=== PATIENT | female | born 1945 | race Caucasian/White ===

== ENCOUNTER 2019-05-15 00:45 | Inpatient (IN) | payer MEDICARE, OTHER ==
[2019-05-14 14:40] LABS: INR 0.95
--- NOTE | 2019-05-14 15:23 | RADIOLOGY IMAGING REPORT ---
[place] [facility] [place] NAME: Genesis Carranza : 1945 MR: [id number] V: [id number] EXAM DATE: ORDERING PHYSICIAN: ZACH LINCOLN TECHNOLOGIST: [place] [facility] [place] Genesis Carranza : 1945 Visit/Account:[id number] Date of Sevice: 05/13/2019 Study: Lower extremity length Indication: Planning for left total knee arthroplasty. Comparison study: None available Findings: AP images of the lower extremities with the patient in standing position were obtained. As measured from the top of the right femoral head to the right tibial plafond, the right lower extre mity measures 87.8 cm. The left lower extremity measures 86.6 cm as measured from the same landmarks. There is no evidence of lytic or blastic bony lesions. There is no evidence of acute abnormality. The patient is status post right total knee replacement. IMPRESSION: No acute bony abnormality identified. The patient is status post right total knee arthro plasty. Report Dictated By: Sandip Carver at 05/14/2019 3:04 PM Report E-Signed By: Sandip Carver at 05/14/2019 3:16 PM WSN:[id number]
[~2019-05-15] VITALS: Ht 172.7 cm; Wt 122.0 kg
[2019-05-15] VITALS (15 sets, daily range): BP systolic 128–157; BP diastolic 50–76
[~2019-05-15 00:45] MED LIST: ALLO100T70 PO; ALPR-448 PO; AMLO-127 PO; CETI-176 PO; CHOL10005 PO; DUL100/5PT INH; DULERAPT INH; FLUT9.9S; HYDR-385 PO; IRBE300T6 PO; LEVO200T44 PO; LOSA100T75 PO; MONT10TA4 PO; OXYC-823 PO; OXYC-865 PO; OXYGENHOME INH; PENT100C10 PO; TIO18R INH; VALS160T22 PO
[2019-05-15] MEDS ORDERED: MIDAZOLAM 2 MG/2 ML VIAL IVP PRN (06:15)
[2019-05-15] MEDS ORDERED: ACETAMINOPHEN 500 MG TAB PO ONE (06:15)
[2019-05-15] MEDS ORDERED: VANCOMYCIN(*) 1 GM VIAL 1.75 GM in NS(*) 0.9% 250 ML BAG 250 ML IVPB ONE (06:15)
[2019-05-15] MEDS ORDERED: FAMOTIDINE 20 MG TAB PO ONE (06:15)
[2019-05-15] MEDS ORDERED: LIDOCAINE/SOD BICARB 8.4% SYR ID ONE (06:15)
[2019-05-15] MEDS ORDERED: ROPIVACAINE/EPI/CLONIDINE/KET 50 ML SYRINGE INJ ONE (06:15)
[2019-05-15] MEDS ORDERED: NORMOSOL R SOLN(*) 1000 ML BAG 1,000 ML IV PRN (06:15)
[2019-05-15] MEDS ORDERED: TRANEXAMIC AC 1000 MG/10ML SDV 1,000 MG in DEXTROSE 5% 50 ML BAG 50 ML IV ONE (06:15)
[2019-05-15] MEDS ORDERED: PREGABALIN 75 MG CAPSULE PO ONE (06:15)
[2019-05-15] MEDS ORDERED: fentaNYL CITR 100 MCG/2 ML AMP ONE ×2 (09:40→09:53)
[2019-05-15] MEDS ORDERED: KCL/D5LR 20 MEQ/1000 ML PREMIX 1,000 ML IV PRN (10:15)
[2019-05-15] MEDS ORDERED: MAGNESIUM CITRATE 300 ML BTL PO PRN (10:15)
[2019-05-15] MEDS ORDERED: diphenhydrAMINE 25 MG CAP PO PRN (10:15)
[2019-05-15] MEDS ORDERED: ACETAMINOPHEN 500 MG TAB PO PRN (10:15)
[2019-05-15] MEDS ORDERED: NALOXONE HCL 0.4 MG/ML VIAL IVP PRN (10:15)
[2019-05-15] MEDS ORDERED: ONDANSETRON 4 MG/2 ML VIAL IVP PRN ×2 (10:15→15:05)
[2019-05-15] MEDS ORDERED: PROMETHAZINE 25 MG/ML 1 ML AMP IVP PRN (10:15)
[2019-05-15] MEDS ORDERED: FLUSH 10 ML SYR IVP PRN (10:15)
[2019-05-15] MEDS ORDERED: HYDROMORPHON PCA10MG/50ML(CII) 10 MG/50 ML PLAST..BAG IV PRN (10:15)
--- NOTE | 2019-05-15 13:21 | NUR ---
Physical Therapy Impression PT eval completed. Pt able to ambulate safely with good quad control to/from BR and was SBA/CGA for transfers and bed mobility. Pt encouraged to amb with nursing through the evening for short distances at tolerated. CPM trng completed with pt/CG and encouraged to advance flexion as tolerated as well. Currently at 0-40 degrees without difficulty. Pt anticipates possible d/c tomorrow and is already set up with out pt rehab next Saturday. PT did call this agency to request an earlier visit in the week, however, clinic closes early on Fridays, thus a voicemail was left, requesting that they contact the pt if an earlier visit is available. Physical Therapy Goals 1. Pt to be SBA/CGA for bed mobility and supine to/from sit transfers 2. Pt to be SBA/CGA for sit to/from stand transfers 3. Pt to be Mod indep/SBA for ambulation with least restrictive device x 150' 4. Pt to kurtis up/down platform step with rail and SBA/CGA Patient's Goals
--- NOTE | 2019-05-15 13:39 | RADIOLOGY IMAGING REPORT ---
FACILITY: [facility] PATIENT NAME: Genesis Carranza : 1945 MR: [id number] V: [id number] EXAM DATE: ORDERING PHYSICIAN: ZACH LINCOLN TECHNOLOGIST: Location: [facility] [place] Patient: Genesis Carranza : 1945 Visit/Account:[id number] Date of Sevice: 05/15/2019 Exam type: KNEE LIMITED LEFT History: Post op placement Comparison: May 14, 2019. Findings: Two views of the left knee demonstrate a left knee arthroplasty in good anatomic alignment. Soft tis chet gas projecting over the anterior aspect this postoperative knee IMPRESSION: 1. As above Report Dictated By: Ying Guevara MD at 05/15/2019 1:31 PM Report E-Signed By: Ying Guevara MD at 05/15/2019 1:32 PM WSN:[id number]
[2019-05-15] MEDS ORDERED: LEVOFLOXACIN 500 MG TAB PO SCH (14:00)
--- NOTE | 2019-05-15 14:28 | Hospitalist Consultation ---
History of Present Illness Requesting Physician Dr. Slaughter Reason for Consult Management of Hypertension, COPD. Chief Complaint Total knee replacement by Kasandra Smith on 05/15/19. History of Present Illness Total knee replacement with Dr. Slaughter on 05/15/19. No surgical complications reported. She is alert and oriented at this time. She will be on Aspirin for anticoagulation postoperatively. History Problems: (1) HTN (hypertension) Status: Chronic Home Meds Reported Medications Pentosan Polysulfate Sodium (ELMIRON) 100 Mg Capsule, 100 MG PO TID, CAPSULE 05/14/19 Losartan Potassium (LOSARTAN POTASSIUM) 100 Mg Tablet, 100 MG PO QDAY 05/07/19 Cholecalciferol (Vitamin D3) (VITAMIN D3) 1,000 Unit Tablet, 2000 UNIT PO QDAY, TAB 12/03/15 Mometasone/Formoterol (DULERA 200 MCG/5 MCG INHALER) 13 Gm Inh, 2 PUFF INH BID, INH 06/10/15 Oxygen (OXYGEN) Inha, 3 L INH DAILY, L 06/10/15 Tiotropium [place] (SPIRIVA) 18 Mcg/Cap Inh, 1 CAP INH DAILY, INH 06/10/15 Fluticasone Propionate (Flonase Allergy Relief) 9.9 Ml [place].susp, 2 SPRAY NA BID 06/10/15 Cetirizine Hcl (ZYRTEC) 10 Mg Tablet, 10 MG PO QDAY, TAB 06/10/15 Alprazolam 0.5 Mg Tab (ALPRAZOLAM 0.5 MG TAB) 0.5 Mg Tablet, 0.5 MG PO BID PRN for ANXIETY, TAB 06/10/15 Levothyroxine Sodium (SYNTHROID) 200 Mcg Tablet, 150 MCG PO QDAY 06/10/15 Allopurinol (ALLOPURINOL) 100 Mg Tablet, 100 MG PO QDAY, #10 TAB 06/10/15 Montelukast Sodium (MONTELUKAST SODIUM) 10 Mg Tablet, 1 TAB PO QDAY, TAB 06/10/15 Amlodipine Besylate (AMLODIPINE BESYLATE) 10 Mg Tablet, 1 TAB PO QDAY, TAB 06/10/15 Allergies: Coded Allergies: Sulfa (Sulfonamide Antibiotics) (Unverified Allergy, Severe, HIVES, ALSO BLADDER PAIN, 11/24/15) ibuprofen (Unverified Allergy, Severe, ELEVATES B/P, 05/14/19) HYPERTENSION tramadol (Unverified Allergy, Severe, ITCHING, 06/10/15) adhesive tape (Verified Allergy, Intermediate, BLISTERS SKIN, TEARS SKIN (WHITE ADHESIVE TAPE), 05/07/19) codeine (Verified Allergy, Intermediate, ITCHING, 05/07/19) lactose (Verified Allergy, Intermediate, DIARRHEA, 11/24/15) ciprofloxacin (Verified Adverse Reaction, Mild, MUSCLE/TENDONS TIGHTENS, 05/07/19) Patient History: Cardiac arrest Interstitial lung disease Hx Smoking: Yes (3 YEARS A PACK DAILY QUIT 40YRS AGO) Smoking Status: Former Smoker Exposure to Second Hand Smoke?: No Caffeine Intake: Coffee Caffeine/Cups Per Day: 1 Hx Alcohol Use: No Hx Substance Use Disorder: No Social Drug Use: Never Review of Systems All Systems Reviewed/Normal: Yes, Except as Noted Exam Vital Signs Vital Signs Date Time Temp Pulse Resp B/P (MAP) Pulse Ox O2 Delivery O2 Flow Rate FiO2 05/15/19 11:15 80 135/70 (91) 97 05/15/19 10:54 97.9 18 Nasal Cannula 3.0 General Appearance: Alert, Awake, No Acute Distress Cardiovascular: Regular Rate and Rhythm Respiratory: No Respiratory Distress, Clear to Auscultation GI: Abd Soft and Non-Tender Medical Decision Making Data Points Result Diagram: 05/15/19 1006 Assessment and Plan Problems: (1) Status post total knee replacement Assessment & Plan: Total knee replacement with Dr. Slaughter. On full strength asprin for antiocoagulation postop. Will be working with PT/OT for strengthening. Pain management by Ortho. (2) HTN (hypertension) Status: Chronic Assessment & Plan: Chronic management with Losartan and Amlodipine. Have started both with parameters. (3) Restrictive lung disease secondary to obesity Status: Chronic Assessment & Plan: Chronic treatment with Dulera and Spiriva. (4) Hypothyroidism Status: Chronic Assessment & Plan: Chronic treatment with Levothyroxine. Will continue. (5) Environmental allergies Status: Chronic Assessment & Plan: Chronic treatment with Zyrtec, Singulair, and Flonase. Will continue. (6) ANXIETY DISORDER, UNSPECIFIED Assessment & Plan: Manages successfully at home with Xanax 0.5mg BID PRN. She states she typically only takes at night, but will take during the day if needed. Will continue. Venous Thromboembolism Antithrombotics Is Pt On Any Antithrombotics?: No ZACH DIAZ May 15, 2019 14:28
[2019-05-15] MEDS ORDERED: ALPRAZolam 0.5 MG TAB PO PRN (14:30)
[2019-05-15] MEDS: oxyCODON/ACET (*)5/325MG (CII) 1 TAB TAB PO PRN ×2 (16:37→21:18)
[2019-05-15] MEDS: MOMETASONE/FORMOT 200MCG/5 MCG IH SCH (17:50)
[2019-05-15] MEDS: FLUTICASONE PROP 0.05% 16 GM SCH (21:00)
[2019-05-16 00:50] VITALS: BP 137/58
[2019-05-16] MEDS: oxyCODON/ACET (*)5/325MG (CII) 1 TAB TAB PO PRN ×4 (02:28→14:56)
[2019-05-16 02:36] VITALS: BP 157/56
[2019-05-16] MEDS: MOMETASONE/FORMOT 200MCG/5 MCG IH SCH (05:24)
[2019-05-16] MEDS ORDERED: TIOTROPIUM BROM INH 18 MCG/CAP INH SCH (06:00)
[2019-05-16] MEDS ORDERED: LEVOTHYROXINE SOD 0.150 MG TAB PO SCH (06:00)
[2019-05-16 06:58] LABS: PLATELET COUNT, AUTOMATED 234 K/uL (150-450)
[2019-05-16 08:26] VITALS: BP 141/67
[2019-05-16] MEDS: FLUTICASONE PROP 0.05% 16 GM SCH (09:00)
[2019-05-16] MEDS ORDERED: MONTELUKAST SODIUM 10 MG TAB PO SCH (09:00)
[2019-05-16] MEDS ORDERED: amLODIPine BESYL(*) 5 MG TAB PO SCH (09:00)
[2019-05-16] MEDS ORDERED: PATIENT'S OWN MED PO SCH (09:00)
[2019-05-16] MEDS ORDERED: ALLOPURINOL 100 MG TAB PO SCH (09:00)
[2019-05-16] MEDS ORDERED: ASPIRIN 325 MG ENTERIC COATED PO SCH (09:00)
[2019-05-16] MEDS ORDERED: LOSARTAN POTASSIUM 50 MG TAB PO SCH (09:00)
[2019-05-16] MEDS ORDERED: CETIRIZINE HCL 10 MG TAB PO SCH (09:00)
--- NOTE | 2019-05-16 09:10 | NUR ---
Physical Therapy Impression Patient was mod I with bed mobility and transfers. Patient was able to demonstrate proper use of CPM and it was set at 0 to 50 and removed for therapy session. Patient instructed in gait training with FWW with SBA and cuing for increased weight shift onto left LE. Patient ambulated ~160 feet with no lob. Patient ascended and descended platform step with railing on left and GAS TRUCK DRIVER on right as patient has double railing to get into her home x 1 rep and the railing on right no GAS TRUCK DRIVER on left on second rep. Patient demonstrated safe technique with platform step. Upon return to room patient left in chair where she performed ankle pumps, Heel slides, quad and glute sets, and SAQ x 8 reps each with proper technique and instructed to perform these twice a day until she her OP appointment. All goals were met and patient is ready to d/c to home where she has OP PT set up. Patient left in chair with all needs met and present. Physical Therapy Goals 1. Pt to be SBA/CGA for bed mobility and supine to/from sit transfers 2. Pt to be SBA/CGA for sit to/from stand transfers 3. Pt to be Mod indep/SBA for ambulation with least restrictive device x 150' 4. Pt to kurtis up/down platform step with rail and SBA/CGA Patient's Goals
[2019-05-16 10:57] VITALS: BP 134/47
[2019-05-16 11:04] VITALS: Ht 172.7 cm; Wt 122.0 kg
[2019-05-16] MEDS ORDERED: OXYC5CAP21 PO (11:44)
--- NOTE | 2019-05-16 12:27 | Hospitalist Progress Note ---
Subjective Progress Notes Subjective No acute events overnight. She wore her home CPAP. Complained of little sleep, but no surgical complaints. She is diligent in her CPM use. Patient Complains of: Neurological: No: Confusion, Weakness Cardiovascular: No: Chest Pain, Palpitations Respiratory: No: Congestion, Shortness of Breath Gastrointestinal: No Nausea Physical Exam Vital Signs Date Time Temp Pulse Resp B/P (MAP) Pulse Ox O2 Delivery O2 Flow Rate FiO2 05/16/19 10:57 99.2 76 12 134/47 (76) 90 Nasal Cannula 2.0 Intake and Output 05/16/19 07:03 Intake Total 1410 ml Output Total 500 ml Balance 910 ml Intake Oral 360 ml IV Total 1050 ml Output Urine Total 500 ml # Voids 9 General Appearance: Alert, Awake, No Acute Distress, Afebrile Neuro: No Gross deficits Cardiovascular: Regular Rate and Rhythm Respiratory: No Respiratory Distress, Clear to Auscultation GI: Soft and Non-Tender Result Diagram: 05/16/19 0617 Assessment and Plan Problems: (1) Status post total knee replacement Assessment & Plan: Total knee replacement with Dr. Slaughter. On full strength aspirin for anticoagulation postop. Will be working with PT/OT for strengthening. Pain management by Ortho. (2) HTN (hypertension) Status: Chronic Assessment & Plan: Chronic management with Losartan and Amlodipine. Have started both with parameters. (3) COPD (chronic obstructive pulmonary disease) Assessment & Plan: Chronic treatment with Dulera and Spiriva. (4) Restrictive lung disease secondary to obesity Status: Chronic Assessment & Plan: She states she has been told her respiratory issues are both COPD related and Restrictive. (5) Hypothyroidism Status: Chronic Assessment & Plan: Chronic treatment with Levothyroxine. Will continue. (6) Environmental allergies Status: Chronic Assessment & Plan: Chronic treatment with Zyrtec, Singulair, and Flonase. Will continue. (7) ANXIETY DISORDER, UNSPECIFIED Assessment & Plan: Manages successfully at home with Xanax 0.5mg BID PRN. She states she typically only takes at night, but will take during the day if needed. Will continue. (8) Chronic cystitis Assessment & Plan: Chronic treatment with Elmiron. Elmiron on hold due to interaction with Aspirin. She states she is fine holding the medication. Would recommend following up with Urology on discharge for management of Cystitis. Exam Sepsis Risk: No Definite Risk ZACH DIAZ May 16, 2019 12:27
[2019-05-16] MEDS ORDERED: ASPI-757 PO (13:33)
--- NOTE | 2019-05-16 13:35 | Miscellaneous Provider Note ---
Miscellaneous Provider Note Note Hold Elmiron due to interaction with Aspirin. Follow up with your Urologist for management of Cystitis and possible continued Elmiron treatment. You will be on Aspirin for 30 days for DVT prophylaxis. Copies to: ZACH LINCOLN MD ; ZACH DIAZ May 16, 2019 13:35
--- NOTE | 2019-05-16 14:38 | OPERATIVE REPORT 1 ---
EVENT DATE: May 15, 2019 SURGEON: Joseluis Slaughter MD ANESTHESIOLOGIST: Shiva Wahl MD ANESTHESIA: General plus adductor canal block. MAINTENANCE COORDINATOR: Niko Summers PA-C PREOPERATIVE DIAGNOSIS Left knee degenerative joint disease. POSTOPERATIVE DIAGNOSIS Left knee degenerative joint disease. PROCEDURE PERFORMED Left total knee arthroplasty (38779). ESTIMATED BLOOD LOSS Minimal (approximately 50 mL). INTRAVENOUS FLUIDS Crystalloid 1000 mL, no colloid. TOURNIQUET TIME 64 minutes. SPECIMENS No specimens. COMPLICATIONS No complications. IMPLANTS USED [employer] rotating platform femur size 7 cut at 5 degrees, posterior stabilized, with a size 7 tibial element, also rotating platform, a rotating platform 7 x 8 mm insert, and a 35 anatomic polyethylene patella, all cemented. SUMMARY OF PROCEDURE The patient was seen in the preoperative holding area. She had mentioned to me that in her last total knee arthroplasty, she woke up with quite a bit of pain and was hoping for a different [employer]ACHINE OPERATOR medication as well as a different type of block. The plan was made to go ahead with an adductor canal block with a cocktail injected perioperatively in the joint as well as using hydromorphone instead of morphine in the [employer]INE OPER[employer]. She was brought to the operating room and received the adductor canal block as well as a general anesthetic. The left knee was prepped and draped in the usual sterile fashion. The limb was exsanguinated, and the tourniquet was inflated. She has a very large leg, and that made the approach a bit more challenging through a lot of soft tissue, but upon doing the medial arthrotomy, the fluid was clear. We were able to shift the patella to the side, but everting the patella was really not possible because of her size and because it precluded approach to the lateral aspect of the knee. We released the ACL and also checked for the patellofemoral ligament, but no release was necessary. We removed osteophytes and then cleared the anterior aspect of the femur for later exposure and sizing. Intramedullary guidance was obtained, and we made our initial cut based on long plate films at 5 degrees, which seemed to fit her well. Unlike the other knee that we had done previously, this did not require additional cutting; 9 mm were sufficient off the end. We sized her at a 7 and then proceeded with the remainder of her cuts. Because of the large osteophyte on the tibia, placement of the trial was not possible at this time, so I removed some osteophytes and obtained intramedullary guidance of the tibia and proceeded to prepare that one at about 3 mm below the deficient side because 2 mm was not quite enough on the lateral side. The cut was made. We then removed the remainder of the menisci as well as the posterior osteophytes and freed up the capsule, released a bit of the PCL that was not fully released from the previous cuts that we had made in the femur. We now went back and did our trial femur, drilled the lug holes, and then did a trial reduction, which seemed to fit well. It looked like she was loose enough that we would probably thicken the polyethylene a little bit for the final implant. We prepared the patella using a 35 mm anatomic trial. Once everything was done and fit well, we opened the implants, irrigated the wound with Irrisept as well as saline, which we had been doing throughout the case, as well as washing out the Irrisept after first placing it. The implants were then done starting with the tibia, the trial insert, the femur, and then patella. We held it under pressure until it was fully polymerized, having removed all excess cement. We then trialed a couple different inserts, but ultimately selected a size 8, and then the final size 8 was placed. She was given a final irrigation, and then closure was with #1 Vicryl, followed by layered closure for the deep subcutaneous tissues with 2-0 Vicryl, superficial subcutaneous fatty tissue with 3-0 Vicryl, 4-0 Monocryl for the subcuticular layer, with Steri-Strips and Dermabond applied. A dry, sterile dressing followed. She was then awakened and transferred to the recovery room in stable condition. LAYLA
== END 2019-05-16 15:00 | disposition home or self-care (01) | DRG 470 ==
LOC: OR 00:45 → MED 10:50
PROVIDERS: ADMIT Orthopaedic Surgery Hand Surgery; ATTEND Orthopaedic Surgery Hand Surgery
PROC: 0SRD0J9 Replacement of Left Knee Joint with Synthetic Substitute, Cemented, Open Approach (ICD-10-PCS; principal; 2019-05-15 07:15)
DX: M17.12 Unilateral primary osteoarthritis, left knee (principal); I50.32 Chronic diastolic (congestive) heart failure; Z68.41 Body mass index [BMI] 40.0-44.9, adult; I10 Essential (primary) hypertension; N30.20 Other chronic cystitis without hematuria; G47.33 Obstructive sleep apnea (adult) (pediatric); E66.9 Obesity, unspecified; J44.9 Chronic obstructive pulmonary disease, unspecified; F41.9 Anxiety disorder, unspecified; E03.9 Hypothyroidism, unspecified; Z99.81 Dependence on supplemental oxygen; Z88.2 Allergy status to sulfonamides; Z88.5 Allergy status to narcotic agent; Z88.8 Allergy status to other drugs, medicaments and biological substances; Z91.011 Allergy to milk products; Z87.891 Personal history of nicotine dependence
CPT/HCPCS: 36415; 77073; 81001; 85014; 85018; 85025; 85610; 86850; 86900; 86901; 94640; 94660; 97161; J2250; J3010; J3370; J3535; J7050; J7060